=== PATIENT | female | born 1960 | race Caucasian/White ===

== ENCOUNTER → 2022-02-09 | Day surgery (SDC) | payer BC ==
[~2022-02-09] MED LIST: ALLERGY4 MG PO; CARVEDILOL25 MG PO; ENTRESTO PO; LIDOCAINE HCL 2% LOCAL INJ 5 ML SDV VIAL INJ ONE; MIDAZOLAM HCL 2 MG/2 ML VIAL ONE; PRADAXA150 MG PO; PROPOFOL IV EMULSION 10 MG/ML 20 ML VIAL ONE; VITAMIN D
[2022-02-09 07:35] VITALS: BP 114/64
== END | disposition home or self-care (01) ==
LOC: OR 06:46
PROVIDERS: ATTEND Internal Medicine Gastroenterology
DX: Z12.11 Encounter for screening for malignant neoplasm of colon (principal); D12.3 Benign neoplasm of transverse colon; K62.1 Rectal polyp; K57.30 Diverticulosis of large intestine without perforation or abscess without bleeding; K64.8 Other hemorrhoids; I50.9 Heart failure, unspecified; E66.9 Obesity, unspecified; Z88.1 Allergy status to other antibiotic agents; Z01.810 Encounter for preprocedural cardiovascular examination; Z68.32 Body mass index [BMI] 32.0-32.9, adult; Z95.0 Presence of cardiac pacemaker; Z80.0 Family history of malignant neoplasm of digestive organs
CPT/HCPCS: 45380; 45385; 88305; 93005; J2001; J2250; J2704; 45378